=== PATIENT | female | born 2000 | race Caucasian/White ===

== ENCOUNTER 2024-05-16 16:01 | Emergency (ER) | payer BC ==
[~2024-05-16] VITALS: Ht 170.2 cm; Wt 66.7 kg
[2024-05-16] MEDS ORDERED: AMOX-430 PO (16:37)
[2024-05-16 16:45] VITALS: BP 101/78; TEMP 98; O2SAT 99
[2024-05-16 16:58] LABS: *BILIRUBIN,URIN NEGATIVE (NEGATIVE); *CLARITY,URINE CLEAR (CLEAR); *COLOR,URINE YELLOW (YELLOW); *KETONES,URINE NEGATIVE (NEGATIVE); *PROTEIN,URINE NEGATIVE (NEGATIVE); *UROBILINOGEN,URINE 0.2 E.U./dl (NORMAL); LEUKOCYTE ESTERASE ,URINE 2+ (NEGATIVE); NITRITE, URINE NEGATIVE (NEGATIVE); UGLUCOSE NEGATIVE (NEGATIVE)
[2024-05-16 17:09] LABS: *BLOOD, URINE TRACE (NEGATIVE)
[2024-05-16 17:29] LABS: BACTERIA,URINE FEW /HPF (NONE SEEN); RBC,URINE 0-3 /HPF (0-3); SQUAMOUS EPITHELIAL CELL,UR MANY /HPF (NONE SEEN)
== END 2024-05-16 16:47 | disposition home or self-care (01) ==
LOC: ER 16:04
DX: O26.892 Other specified pregnancy related conditions, second trimester (principal); Z79.899 Other long term (current) drug therapy; Z3A.19 19 weeks gestation of pregnancy
CPT/HCPCS: 76856; A4606; A4663